=== PATIENT | male | born 1955 | race Caucasian/White ===

== ENCOUNTER → 2017-01-28 | Outpatient (CLI) | payer MEDICARE ==
--- NOTE | 2017-01-28 14:27 | RAD ---
Indication shortness of air. PA and lateral views of the chest were obtained and are compared to an examination 08/04/2009. There is hyperexpansion in the lungs similar to the previous exam. There is interstitial prominence which represents a new finding relative to the prior study. Findings may reflect the interval development of fibrosis (significant interstitial disease was not suggested on the previous exam). Superimposed interstitial inflammatory disease or interstitial edema is not excluded. There is no consolidated pneumonia. Significant pleural fluid is not seen. IMPRESSION: Hyperexpansion suggesting emphysema. New interstitial prominence relative to the previous study. See above discussion. No consolidated pneumonia seen
== END | disposition home or self-care (01) ==
LOC: RAD 12:42
PROVIDERS: ATTEND Internal Medicine Pulmonary Disease
DX: R06.02 Shortness of breath (principal)
CPT/HCPCS: 71020